=== PATIENT | male | born 1970 | race Caucasian/White ===

== ENCOUNTER 2017-07-26 15:46 | Observation (INO) | payer MEDICARE ==
[~2017-07-26] VITALS: Ht 180.3 cm; Wt 88.4 kg
[2017-07-26] MEDS ORDERED: CIPRO 250MG TA250 MG PO (15:53)
[2017-07-26] MEDS ORDERED: DEPAKOTE ER 25250 MG PO (15:53)
[2017-07-26] MEDS ORDERED: DILANTIN 100MG100 MG PO (15:53)
[2017-07-26] MEDS ORDERED: ZOLOFT 100MG100 MG PO (15:53)
[2017-07-26] MEDS ORDERED: CHOLESTEROL (15:54)
[2017-07-26] MEDS ORDERED: XANAX 0.5MG0.5 MG PO (15:54)
[2017-07-26] MEDS ORDERED: VALIUM 2MG T2 MG/TAB PO (15:54)
[2017-07-26] MEDS ORDERED: BLOOD PRESSURE (15:54)
[2017-07-26 16:32] LABS: COLLECTION METHOD CLEAN CATCH
[2017-07-26 16:38] LABS: BASO # 0.1 (0.0-0.2); BASO % 0.4 % (0.0-2.0); EOS # 0.2 (0.0-0.7); EOS % 1.1 % (0-4.0); GRAN # 14.9 (1.4-6.5); GRAN % 75.6 % (42.2-75.2); HEMATOCRIT 43.8 % (42.0-52.0); HEMOGLOBIN 14.8 g/dl (13.5-18.0); LYMPH # 3.1 (1.2-3.4); LYMPH % 15.5 % (20.0-51.0); MEAN CELL VOLUME 94 fl (80.0-100.0); MEAN CORPUSCULAR HEMOGLOBIN 32 pg (27.0-31.0); MEAN CORPUSCULAR HGB CONC 34 g/dl (33.0-37.0); MEAN PLATELET VOLUME 9.5 fl (7.4-10.4); MONO # 1.4 (0.1-0.6); MONO % 6.9 % (1.7-9.3); PLATELET COUNT 351 K/mm3 (130-400); RED BLOOD COUNT 4.67 M/mm3 (4.20-5.60)
[2017-07-26 16:41] LABS: MUCOUS Present /lpf; PH 5 (5-8); SQUAMOUS EPITHELIAL None Seen /hpf; URINE APPEARANCE Clear; URINE BACTERIA None Seen /hpf; URINE BILIRUBIN Negative (NEGATIVE); URINE BLOOD Negative (NEGATIVE); URINE COLOR Yellow; URINE GLUCOSE Negative (NEGATIVE); URINE KETONE Negative (NEGATIVE); URINE LEUKOCYTE ESTERASE Negative (NEGATIVE); URINE NITRATE Negative (NEGATIVE); URINE PROTEIN(semi-quant) Negative (NEGATIVE); URINE RBC 20-50 /hpf
[2017-07-26 16:52] LABS: CALCIUM 9.8 mg/dL (8.4-10.2); CREATININE, serum 1.02 mg/dL (0.66-1.25); POTASSIUM 3.7 mmol/L (3.4-5.0)
[2017-07-26 18:03] VITALS: BP 140/80; PULSE 80
[2017-07-26 18:05] VITALS: BP 143/85; PULSE 87; TEMP 97.5
[2017-07-26 18:18] VITALS: BP 142/82; PULSE 78
[2017-07-26 18:33] VITALS: BP 140/75; PULSE 75
[2017-07-26 20:00] VITALS: BP 151/80; PULSE 68; TEMP 98
[2017-07-26] MEDS ORDERED: PRILOSEC 20MG20 MG PO (20:14)
[2017-07-26] MEDS ORDERED: LIPITOR 10MG10 MG PO (21:19)
[2017-07-26] MEDS ORDERED: NORVASC 5MG5 MG/TAB PO (21:19)
[2017-07-26] MEDS ORDERED: ZANTAC 150MG T150 MG PO (21:21)
[2017-07-26] MEDS ORDERED: DEPAKOTE500 MG PO (21:21)
[2017-07-26 23:38] VITALS: BP 124/73; PULSE 73; TEMP 98.6
[2017-07-27] VITALS (9 sets, daily range): BP systolic 91–144; BP diastolic 64–78; PULSE 54–83; TEMP 97.6–98.9
== END 2017-07-27 12:50 | disposition home or self-care (01) ==
LOC: COL.ER 15:46 → SURG 17:28
PROVIDERS: Emergency Medicine; Urology
PROC: 0TF78ZZ Fragmentation in Left Ureter, Via Natural or Artificial Opening Endoscopic (ICD-10-PCS; principal; 2017-07-27 08:00)
PROC: 0T7B8DZ Dilation of Bladder with Intraluminal Device, Via Natural or Artificial Opening Endoscopic (ICD-10-PCS; 2017-07-27 08:00)
DX: N20.1 Calculus of ureter (principal); R56.9 Unspecified convulsions; I10 Essential (primary) hypertension; F41.9 Anxiety disorder, unspecified; G47.33 Obstructive sleep apnea (adult) (pediatric); F17.210 Nicotine dependence, cigarettes, uncomplicated
CPT/HCPCS: C1769; C2617; G0378; J1100; J1170; J1885; J2270; J2405; J2704; J3010; J7030; J7120; Q9967

== ENCOUNTER → 2017-10-24 | Outpatient (CLI) | payer MEDICARE ==
[~2017-10-24] MED LIST: BLOOD PRESSURE; CHOLESTEROL; CIPRO 250MG TA250 MG PO; DEPAKOTE ER 25250 MG PO; DEPAKOTE500 MG PO; DILANTIN 100MG100 MG PO; LIPITOR 10MG10 MG PO; NORVASC 5MG5 MG/TAB PO; PRILOSEC 20MG20 MG PO; VALIUM 2MG T2 MG/TAB PO; XANAX 0.5MG0.5 MG PO; ZANTAC 150MG T150 MG PO; ZOLOFT 100MG100 MG PO
== END ==
LOC: COL.RAD 12:42
DX: R10.12 Left upper quadrant pain (principal); Z87.442 Personal history of urinary calculi